=== PATIENT | female | born 1965 | race Caucasian/White ===

== ENCOUNTER 2022-07-19 10:50 | Emergency (ER) | payer MEDICAID, OTHER ==
[~2022-07-19] VITALS: Ht 170.2 cm; Wt 126.0 kg
[2022-07-19 10:57] VITALS: BP 142/83
[2022-07-19] MEDS ORDERED: ONDANSETRON HCL 4 MG/2 ML VIAL IV ONE ×2 (11:15→14:30)
[2022-07-19] MEDS ORDERED: SODIUM CHLORIDE 0.9% 1,000 ML IV ONE (11:15)
[2022-07-19] MEDS ORDERED: SODIUM CHLORIDE 0.9% 1,000 ML IVB ONE (11:15)
[2022-07-19] MEDS ORDERED: cefTRIAXone 1GM/50ML D5W 50 ML IV ONE (11:15)
[2022-07-19 11:51] LABS: Basophils # (auto) 0.1 10 ^3/uL (0-0.2); Basophils % (auto) 0.9 % (0.0-2.0); Eosinophils # (auto) 0.1 10 ^3/uL (0-0.8); Eosinophils % (auto) 1.2 % (0.0-7.0); Hematocrit 45.1 % (36.0-46.0); Hemoglobin 14.8 g/dL (12.2-16.2); Lymphocytes # (auto) 2.6 10 ^3/uL (0.4-5.4); Lymphocytes % (auto) 36.5 % (10.0-50.0); Mean Corpuscular Hemoglobin 29.3 pg (28.0-32.0); Mean Corpuscular Hgb Conc. 32.8 g/dL (32.0-36.0); Mean Corpuscular Volume 89.2 fL (80.0-100.0); Monocytes # (auto) 0.4 10 ^3/uL (0-1.3); Monocytes % (auto) 6.4 % (0.0-12.0); Neutrophils # (auto) 3.9 10 ^3/uL (1.6-8.6); Nucleated Red Blood Cells % 0.1 %; Red Blood Cells 5.05 10^6/uL (4.0-5.20); Red Cell Distribution Width 14.1 % (11.8-14.3)
[2022-07-19] MEDS ORDERED: PANT40TA2 PO (12:11)
[2022-07-19 12:19] LABS: Albumin 3.4 g/dL (3.4-5.0); Calcium 9.6 mg/dL (8.5-10.1); Potassium 3.9 mmol/L (3.5-5.1)
[2022-07-19 12:22] LABS: BUN/Creatinine Ratio 22.8; Bilirubin, Total 0.4 mg/dL (0.2-1.0); Total Protein 6.5 g/dL (6.4-8.2)
[2022-07-19] MEDS ORDERED: LIDOCAINE VISCOUS 2% 15ML UD PO ONE (12:45)
[2022-07-19] MEDS ORDERED: DONNATAL 5ml ORAL Elix (BELLADONNA ALK-PHENOBARB) PO ONE (12:45)
[2022-07-19] MEDS ORDERED: ALUM & MAG HYDROX-SIMETH LIQ(MAALOX) 30 ML PO ONE (12:45)
[2022-07-19] MEDS ORDERED: ENOXAPARIN SOD 120 MG/0.8 ML SYRINGE SC ONE (14:15)
[2022-07-19] MEDS ORDERED: MORPHINE SULFATE 4 MG/ML SYR/VIAL IV ONE (14:30)
== END 2022-07-19 19:35 | disposition left against medical advice (07) ==
LOC: ER 10:50 → EDBD 10:50 → ER 19:35
DX: K29.70 Gastritis, unspecified, without bleeding (principal); R10.9 Unspecified abdominal pain; I21.4 Non-ST elevation (NSTEMI) myocardial infarction; E11.9 Type 2 diabetes mellitus without complications; F17.210 Nicotine dependence, cigarettes, uncomplicated; F12.90 Cannabis use, unspecified, uncomplicated; F15.90 Other stimulant use, unspecified, uncomplicated; I10 Essential (primary) hypertension; Z98.890 Other specified postprocedural states; Z88.2 Allergy status to sulfonamides
CPT/HCPCS: 36415; 80053; 83690; 84484; 85025; 93005

== ENCOUNTER 2024-02-14 11:15 | Inpatient (IN) | payer MEDICAID ==
[~2024-02-14] VITALS: Ht 167.6 cm; Wt 68.0 kg
[~2024-02-14 11:15] MED LIST: PANT40TA2 PO
[2024-02-14] MEDS: PANTOPRAZOLE 40 MG/10 ML VIAL INJ IV ONE (11:37)
[2024-02-14] MEDS: ONDANSETRON HCL 4 MG/2 ML VIAL IV ONE (11:37)
[2024-02-14] MEDS: MORPHINE SULFATE 4 MG/ML SYR/VIAL IV ONE (11:37)
[2024-02-14] MEDS: SODIUM CHLORIDE 0.9% 1,000 ML IVB ONE (11:40)
[2024-02-14 11:54] LABS: Basophils # (auto) 0 10 ^3/uL (0-0.2); Basophils % (auto) 0.4 % (0.0-2.0); Eosinophils # (auto) 0 10 ^3/uL (0-0.8); Eosinophils % (auto) 0.1 % (0.0-7.0); Hematocrit 47.5 % (36.0-46.0); Hemoglobin 15.9 g/dL (12.2-16.2); Lymphocytes # (auto) 1.4 10 ^3/uL (0.4-5.4); Lymphocytes % (auto) 10.8 % (10.0-50.0); Mean Corpuscular Hgb Conc. 33.6 g/dL (32.0-36.0); Mean Corpuscular Volume 86.5 fL (80.0-100.0); Monocytes # (auto) 0.6 10 ^3/uL (0-1.3); Monocytes % (auto) 4.3 % (0.0-12.0); Neutrophils # (auto) 11.3 10 ^3/uL (1.6-8.6); Neutrophils % (auto) 84.4 % (37.0-80.0); Nucleated Red Blood Cells % 0.1 %; Red Blood Cells 5.49 10^6/uL (4.0-5.20); Red Cell Distribution Width 13.5 % (11.8-14.3); White Blood Cell 13.3 10^3/uL (4.4-10.8)
[2024-02-14 11:56] VITALS: PULSE 71; RESP 17; O2SAT 96
[2024-02-14 12:12] LABS: Alanine Aminotransferase 11 U/L (7-40); Albumin 4.4 g/dL (3.2-4.8); Alkaline Phosphatase 106 U/L (46-116); Anion Gap 7 (5-15); Aspartate Aminotransferase < 8 U/L (13-40); BUN/Creatinine Ratio 24.6 (10.0-20.0); Bilirubin, Total 0.5 mg/dL (0.2-1.0); Blood Urea Nitrogen 15 mg/dL (9-23); Calcium 10.5 mg/dL (8.7-10.4); Carbon Dioxide 26 mmol/L (20-30); Chloride 102 mmol/L (98-107); Glucose 168 mg/dL (74-106); Lipase 28 U/L (12-53); Potassium 3.7 mmol/L (3.5-5.1); Sodium 135 mmol/L (136-145); Total Protein 7.1 g/dL (5.7-8.2)
[2024-02-14] MEDS ORDERED: DEXTROSE (50%) 50ML SYRG IV PRN (15:15)
[2024-02-14] MEDS: SODIUM CHLORIDE 0.9% 1,000 ML IV SCH (16:58)
[2024-02-14] MEDS ORDERED: NITROGLYCERIN 0.4 MG SL TAB SL PRN (17:15)
[2024-02-14] MEDS: ONDANSETRON HCL 4 MG/2 ML VIAL IV PRN (17:30)
[2024-02-14] MEDS: MORPHINE SULFATE INJ 2 MG/ml SYRG IV PRN (17:31)
[2024-02-14] MEDS: PIPERACILLIN-TAZOB 3.375GM 100 ML IV ONE (17:41)
[2024-02-14] MEDS: ACCU-CHEK COMFORT CURVE STRIP VI SCH (18:22)
[2024-02-14] MEDS: InsuLIN REG 1unit/0.01ml Soln (100units/ml) SC SCH (18:29)
[2024-02-14 20:33] VITALS: PULSE 91; RESP 19; O2SAT 99
[2024-02-14 21:04] VITALS: PULSE 89; RESP 18; O2SAT 97
[2024-02-14] MEDS: PIPERACILLIN-TAZOB 3.375GM 100 ML IV SCH (21:42)
[2024-02-14] MEDS ORDERED: OMEP-448 (22:31)
[2024-02-14] MEDS ORDERED: GAB100C PO (22:31)
[2024-02-14] MEDS ORDERED: GLIM4TAB42 PO (22:31)
[2024-02-14] MEDS ORDERED: METO5TAB2 PO (22:31)
[2024-02-14] MEDS ORDERED: INSUINJ37 SC (22:31)
[2024-02-14] MEDS ORDERED: DOCU-265 PO (22:31)
[2024-02-15 01:00] VITALS: BP 113/70; PULSE 99; RESP 20; TEMP 97.3; O2SAT 96
[2024-02-15 05:00] VITALS: BP 178/84; PULSE 94; RESP 20; TEMP 98.1; O2SAT 97
[2024-02-15 05:59] LABS: Basophils # (auto) 0 10 ^3/uL (0-0.2); Basophils % (auto) 0.3 % (0.0-2.0); Eosinophils # (auto) 0 10 ^3/uL (0-0.8); Eosinophils % (auto) 0.4 % (0.0-7.0); Hematocrit 43.7 % (36.0-46.0); Hemoglobin 14.8 g/dL (12.2-16.2); Lymphocytes # (auto) 1.6 10 ^3/uL (0.4-5.4); Lymphocytes % (auto) 13.4 % (10.0-50.0); Mean Corpuscular Hemoglobin 29.4 pg (28.0-32.0); Mean Corpuscular Volume 86.5 fL (80.0-100.0); Monocytes # (auto) 0.7 10 ^3/uL (0-1.3); Monocytes % (auto) 5.7 % (0.0-12.0); Neutrophils # (auto) 9.5 10 ^3/uL (1.6-8.6); Neutrophils % (auto) 80.2 % (37.0-80.0); Nucleated Red Blood Cells % 0.1 %; Red Blood Cells 5.05 10^6/uL (4.0-5.20); Red Cell Distribution Width 13.5 % (11.8-14.3); White Blood Cell 11.8 10^3/uL (4.4-10.8)
[2024-02-15 06:25] LABS: Alanine Aminotransferase 10 U/L (7-40); Alkaline Phosphatase 92 U/L (46-116); Anion Gap 8 (5-15); Aspartate Aminotransferase < 8 U/L (13-40); Blood Urea Nitrogen 11 mg/dL (9-23); Calcium 9.8 mg/dL (8.7-10.4); Carbon Dioxide 22 mmol/L (20-30); Chloride 107 mmol/L (98-107); Glucose 84 mg/dL (74-106); Potassium 3.2 mmol/L (3.5-5.1); Sodium 137 mmol/L (136-145)
[2024-02-15 06:26] LABS: Bilirubin, Total 0.4 mg/dL (0.2-1.0)
[2024-02-15 07:03] LABS: Total Protein 6.3 g/dL (5.7-8.2)
[2024-02-15 09:00] VITALS: BP 138/75; PULSE 99; RESP 15; TEMP 97.7; O2SAT 96
[2024-02-15] MEDS: PANTOPRAZOLE 40 MG/10 ML VIAL INJ IV SCH (10:17)
[2024-02-15] MEDS: DOCUSATE SOD 100 MG CAP PO PRN (10:17)
[2024-02-15 12:36] VITALS: BP 176/89; PULSE 90; RESP 15; TEMP 97.6; O2SAT 96
[2024-02-15] MEDS: LABETALOL HCL 5 MG/ML 4ML SYRINGE IV PRN (13:34)
[2024-02-15] MEDS: LORazepam 2MG/ML-1ML VIAL IV PRN (13:37)
[2024-02-15] MEDS: LABETALOL HCL 20 MG/4 ML VL IV ONE (13:42)
[2024-02-15 16:49] VITALS: BP 128/74; PULSE 85; RESP 15; TEMP 97.8; O2SAT 95
[2024-02-15 17:32] LABS: Urine Bacteria None Seen /hpf (None Seen)
[2024-02-15 17:49] LABS: Urine Blood TRACE /uL (Negative); Urine Clarity Clear (Clear); Urine Color Light-Yellow (Yellow); Urine Protein, UAD 1+ (Negative); Urine Specific Gravity 1.016 (1.001-1.035); Urine Urobilinogen Normal (Negative); Urine WBC 1 /hpf (0 - 5)
[2024-02-15 17:52] LABS: Amphetamine Screen, Urine Pos (NEGATIVE); Barbiturate Scree,Urine Neg (NEGATIVE); Benzodiazephine Screen, Urine Neg (NEGATIVE); Cocaine Screen, Urine Neg (NEGATIVE); Opiate Scree,Urine Pos (NEGATIVE); Phencyclidine Screen, Urine Neg (NEGATIVE)
[2024-02-15 17:53] LABS: Cannabinoid Screen, Urine Pos (NEGATIVE)
[2024-02-15 21:00] VITALS: BP 133/79; PULSE 84; RESP 20; TEMP 97.6; O2SAT 95
[2024-02-16 01:00] VITALS: BP 174/99; PULSE 90; RESP 20; TEMP 96.7; O2SAT 95
[2024-02-16 05:00] VITALS: BP 171/78; PULSE 89; RESP 20; TEMP 97.4; O2SAT 95
[2024-02-16 06:00] VITALS: BP 155/82
[2024-02-16 08:57] VITALS: BP 162/87; PULSE 88; RESP 17; TEMP 98.5; O2SAT 98
[2024-02-16] MEDS: NIFEdipine ER 30 MG TAB PO ONE (11:56)
[2024-02-16] MEDS: GABAPENTIN 100 MG CAP PO SCH (15:18)
[2024-02-16 16:46] VITALS: BP 153/70; PULSE 94; RESP 17; TEMP 98.9; O2SAT 96
[2024-02-16 21:00] VITALS: BP 131/68; PULSE 91; RESP 18; TEMP 98.6; O2SAT 91
[2024-02-16] MEDS: PANTOPRAZOLE 40 MG/10 ML VIAL INJ IV SCH (22:01)
[2024-02-17] VITALS (8 sets, daily range): BP systolic 81–132; BP diastolic 38–68; PULSE 74–87; RESP 17–20; TEMP 97.5–99.1; O2SAT 93–100
[2024-02-17] MEDS: NIFEdipine ER 30 MG TAB PO SCH (08:57)
[2024-02-17] MEDS ORDERED: SODIUM CHLORIDE 0.9% 1,800 ML IV PRN (18:00)
[2024-02-17] MEDS: HYDROcodone-ACET 5/325MG TAB PO PRN (18:10)
[2024-02-18] VITALS (8 sets, daily range): BP systolic 107–141; BP diastolic 45–70; PULSE 77–89; RESP 18–19; TEMP 97.4–98.4; O2SAT 93–98
[2024-02-19] VITALS (7 sets, daily range): BP systolic 102–135; BP diastolic 44–71; PULSE 69–89; RESP 17–19; TEMP 97.6–99.1; O2SAT 92–96
[2024-02-19] MEDS: SODIUM CHLORIDE 0.9% 1,000 ML IV SCH (12:17)
[2024-02-19] MEDS: POLYETHYLENE GLYCOL 17 GM PWDR PO SCH (12:17)
[2024-02-19 13:28] LABS: Basophils # (auto) 0.1 10 ^3/uL (0-0.2); Basophils % (auto) 0.8 % (0.0-2.0); Eosinophils # (auto) 0.3 10 ^3/uL (0-0.8); Eosinophils % (auto) 4.7 % (0.0-7.0); Hematocrit 38.5 % (36.0-46.0); Lymphocytes # (auto) 1.7 10 ^3/uL (0.4-5.4); Lymphocytes % (auto) 27.7 % (10.0-50.0); Mean Corpuscular Hemoglobin 29.4 pg (28.0-32.0); Mean Corpuscular Hgb Conc. 33.8 g/dL (32.0-36.0); Monocytes # (auto) 0.7 10 ^3/uL (0-1.3); Monocytes % (auto) 10.7 % (0.0-12.0); Neutrophils # (auto) 3.5 10 ^3/uL (1.6-8.6); Neutrophils % (auto) 56.1 % (37.0-80.0); Nucleated Red Blood Cells % 0.1 %; Red Blood Cells 4.43 10^6/uL (4.0-5.20); Red Cell Distribution Width 13.4 % (11.8-14.3); White Blood Cell 6.2 10^3/uL (4.4-10.8)
[2024-02-19 13:37] LABS: Chloride 105 mmol/L (98-107); Sodium 137 mmol/L (136-145)
[2024-02-19 13:38] LABS: Anion Gap 6 (5-15); Calcium 8.7 mg/dL (8.7-10.4); Carbon Dioxide 26 mmol/L (20-30)
[2024-02-19 13:43] LABS: Blood Urea Nitrogen 7 mg/dL (9-23); Glucose 116 mg/dL (74-106)
[2024-02-19] MEDS: LACTULOSE 20Gm/30ML SOLN PO SCH (15:01)
[2024-02-19] MEDS: METOCLOPRAMIDE HCL 5MG/ml INJ 2ml VIAL IV SCH (15:01)
[2024-02-19] MEDS: MORPHINE SULFATE INJ 2 MG/ml SYRG IV PRN (21:40)
[2024-02-20 01:15] VITALS: BP 120/62; PULSE 76; RESP 19; TEMP 97.9; O2SAT 95
[2024-02-20] MEDS: MORPHINE SULFATE INJ 2 MG/ml SYRG IV PRN (02:19)
[2024-02-20 05:00] VITALS: BP 134/79; PULSE 78; RESP 19; TEMP 98.6; O2SAT 96
[2024-02-20 09:04] VITALS: BP 122/66; PULSE 70; RESP 17; TEMP 101.1; O2SAT 96
[2024-02-20 13:00] VITALS: BP 141/75; PULSE 76; RESP 17; TEMP 98; O2SAT 99
== END 2024-02-20 15:20 | disposition home or self-care (01) ==
LOC: EDBD 11:15 → ER 11:15 → OVERFLOW 17:09 → CENTRAL 20:40
PROVIDERS: ADMIT Nurse Practitioner Family; ATTEND Nurse Practitioner Acute Care
DX: K80.20 Calculus of gallbladder without cholecystitis without obstruction (principal); R65.10 Systemic inflammatory response syndrome (SIRS) of non-infectious origin without acute organ dysfunction; K59.00 Constipation, unspecified; E83.52 Hypercalcemia; E78.5 Hyperlipidemia, unspecified; F15.10 Other stimulant abuse, uncomplicated; F17.210 Nicotine dependence, cigarettes, uncomplicated; N20.0 Calculus of kidney; I10 Essential (primary) hypertension; F12.10 Cannabis abuse, uncomplicated; Z88.3 Allergy status to other anti-infective agents; Z88.2 Allergy status to sulfonamides; Z83.3 Family history of diabetes mellitus; Z82.5 Family history of asthma and other chronic lower respiratory diseases; Z82.49 Family history of ischemic heart disease and other diseases of the circulatory system; Z90.710 Acquired absence of both cervix and uterus; Z82.0 Family history of epilepsy and other diseases of the nervous system; Z85.028 Personal history of other malignant neoplasm of stomach; E11.65 Type 2 diabetes mellitus with hyperglycemia
CPT/HCPCS: 36415; 74176; 76700; 80048; 80053; 80307; 81001; 82962; 83036; 83690; 85025; G0378; J1815; J2405; J2543; J3490